=== PATIENT | female | born 1990 | race Caucasian/White ===

== ENCOUNTER → 2018-12-15 | Outpatient (CLI) | payer BC ==
[~2018-12-15] MED LIST: DESO1TAB41 PO; ENOX80DI8 SQ; ISOT40CA4 PO; ONDA8TAB91 PO; OXYC-865 PO; WARF-1 PO
[2018-12-15 16:17] LABS: PLATELET COUNT, AUTOMATED 275 K/uL (150-450)
--- NOTE | 2018-12-16 09:39 | EKG ---
FACILITY: [facility] - [place] PATIENT NAME: MAHOGANY ERAZO : [id number] MR: [id number] V: [id number] EXAM DATE: ORDERING PHYSICIAN: KEIKO HAYWOOD TECHNOLOGIST: DICK Yadav Test Reason : HEART PALPITATIONS Blood Pressure : / mmHG Vent. Rate : 071 BPM Atrial Rate : 071 BPM P-R Int : 122 ms QRS Dur : 090 ms QT Int : 410 ms P-R-T Axes : 041 019 020 degrees QTc Int : 445 ms Normal sinus rhythm Normal ECG No previous ECGs available Confirmed by CALDERON PALOMO ([id number]) on 12/17/2018 6:41:39 AM Referred By: KEIKO HAYWOOD Confirmed By:CALDERON PALOMO
== END ==
LOC: LAB 15:50
PROVIDERS: ATTEND Nurse Practitioner Family
DX: R00.2 Palpitations (principal); R06.02 Shortness of breath
CPT/HCPCS: 36415; 82040; 82247; 82310; 82374; 82435; 82565; 82728; 82947; 83540; 83550; 84075; 84132; 84155; 84295; 84443; 84450; 84460; 84520; 85025; 85379

== ENCOUNTER → 2018-12-23 | Outpatient (CLI) | payer BC ==
--- NOTE | 2018-12-25 12:40 | RT HOLTER TEST ---
FACILITY: [facility] - [place] PATIENT NAME: MAHOGANY ERAZO : [id number] MR: [id number] V: [id number] EXAM DATE: ORDERING PHYSICIAN: KEIKO HAYWOOD TECHNOLOGIST: KEREN Hook-up date: 2018-12-23 08:29:00 Duration: 24:00:00 Test Indications: PALPITATIONS Medications: N/A [id number] QRS complexes 1 Ventricular ectopics which represent <1 % of total QRS comp. 2 Supraventricular ectopics which represent <1 % of total QRS comp. * Paced QRS complexes which represent % of total QRS comp. VENTRICULAR ECTOPY 1 Isolated 0 Bigeminal Cycles 0 Couplets 0 Runs 0 Beats in Runs * Beats LONGEST at * BPM at :: -- * Beats FASTEST at * BPM at :: -- SUPRAVENTRICULAR ECTOPY 2 Isolated 0 Couplets 0 Runs 0 Beats in Runs * Beats LONGEST at * BPM at :: -- * Beats FASTEST at * BPM at :: -- HEART RATES 54 MIN at 00:28:08 2018-12-24 82 AVG 166 MAX at 17:53:57 2018-12-23 LONGEST RR 1.200 secs at 00:24:58 2018-12-24 S-T LEVELS Channel 1 -12.800 mm MIN at 08:29:00 2018-12-23 -12.800 mm MAX at 08:29:00 2018-12-23 Channel 2 -12.800 mm MIN at 08:29:00 2018-12-23 -12.800 mm MAX at 08:29:00 2018-12-23 Channel 3 -12.800 mm MIN at 08:29:00 2018-12-23 -12.800 mm MAX at 08:29:00 2018-12-23 It appears there may be a competing ectopic atrial focus. It is most noticeable on strip noted as "Ma x R-R". It appears the P wave morphology is different periodically throughout the recording. Very rare ventricular ectopy. No couplets, triplets, runs. No pauses were recorded. Episodic ST-T changes were noted during recording. Confirmed by CIRILO JOHNSON ([id number]) on 12/25/2018 12:39:48 PM Referred By: Overread By: CIRILO JOHNSON
== END ==
LOC: RESP 02:59
PROVIDERS: ATTEND Nurse Practitioner Primary Care
DX: R00.2 Palpitations (principal)
CPT/HCPCS: 93225; 93226

== ENCOUNTER 2019-01-28 20:08 | Emergency (ER) | payer BC ==
--- NOTE | 2019-01-28 20:13 | ER Report ---
History and Physical Time Seen By MD: 20:13 HPI/ROS CHIEF COMPLAINT: Chest pain HISTORY OF PRESENT ILLNESS: Patient is a 28-year-old female with past medical history significant for pulmonary embolism 2016, currently not on any anticoagulation. 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 Patient was recently seen by her primary care provider for ep isodes of palpitations. She was found to have some ectopy with a few ventricular ectopic beats and some ST segment changes throughout the evaluation. 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 She currently rates the pain as 5 out of 10 in intensity and describes it as a pressure. She denies any history of or breast-feeding. She denies any abdominal pain. She denies any infectious symptoms such as fevers or chills or cough. REVIEW OF SYSTEMS: Constitutional: No fever, no chills. Eyes: No discharge. ENT: No sore throat. Cardiovascular: Chest pain Respiratory: No cough, no shortness of breath. Gastrointestinal: No abdominal pain, no vomiting. Positive for nausea Genitourinary: No hematuria. Musculoskeletal: No back pain. Skin: No rashes. Neurological: No headache. Allergies: Coded Allergies: No Known Drug Allergies (Unverified , 01/28/19) Home Meds Active Scripts Ondansetron Hcl (ZOFRAN) 8 Mg Tablet, 1 TAB PO Q12H PRN for NAUSEA, #8 TAB 0 Refills Prov:KEIKO HAYWOOD DNP, GROUP MANAGING DIRECTOR-BC 05/17/18 Past Medical/Surgical History Past medical history for pulmonary embolism in December 2016, history of append ectomy Hx Smoking: No Smoking Status: Never Smoker Hx Substance Use Disorder: No Constitutional Vital Sign - Last 24 Hours 01/28/19 01/28/19 01/28/19 01/28/19 20:08 20:13 20:16 20:17 Temp 97.4 Pulse ??? 62 Resp 14 B/P (MAP) 134/82 (99) 134/86 (102) 134/86 Pulse Ox 100 O2 Delivery Room Air 01/28/19 01/28/19 01/28/19 01/28/19 20:30 20:38 21:01 21:08 Pulse 68 73 Resp 13 17 B/P (MAP) 128/89 (102) 112/73 (86) Pulse Ox 94 96 01/28/19 01/28/19 01/28/19 01/28/19 21:30 21:43 22:00 22:05 Pulse 72 70 Resp 22 21 B/P (MAP) 123/77 (92) 120/85 (97) Pulse Ox 92 94 01/28/19 01/28/19 01/28/19 01/28/19 22:30 22:35 23:00 23:05 Pulse 67 66 Resp 27 7 B/P (MAP) 100/61 (74) 112/74 (87) Pulse Ox 95 94 01/28/19 01/28/19 23:30 23:35 Pulse 67 Resp 12 B/P (MAP) 121/71 (88) Pulse Ox 95 Physical Exam General/Constitutional: Patient is awake, alert, nontoxic and in no acute respiratory distress. Head: Normocephalic and atraumatic. Eyes: Conjunctival clear, Sclera are clear and anicteric. Ears:External canals are clear. Tympanic membranes are clear with normal landmarks and light reflex. Nares: No rhinorrhea or bleeding. Turbinates are pink and moist. Oropharyngeal: Mucous membranes are moist. There is no pharyngeal erythema or exudate. There are no palatal petechiae. Uvula is midline and symmetrical. Neck: Supple, no adenopathy. Cardiovascular: Heart is regular rate and rhythm without audible murmurs, rubs or gallops. Pulmonary: Lungs are clear to auscultation bilaterally. There are no wheezes, rales, or rhonchi. Chest rise is symmetrical Abdomen: Soft, nontender, no guarding or peritoneal signs. Extremities: No gross deformities, No peripheral cyanosis. Able to move all 4 extremities. Neuro: Alert and oriented X3, Skin: No rashes, skin is warm dry and well perfused. Medical Decision Making Data Points Result Diagram: 01/28/19205701/28/192057 Laboratory Hematology Test 01/28/19 20:58 01/28/19 23:39 Red Blood Count 4.99 M/uL (4.17-5.56) Mean Corpuscular Volume 88.0 fL (80.0-96.0) Mean Corpuscular Hemoglobin 30.4 pg (26.0-33.0) Mean Corpuscular Hemoglobin Concent 34.5 g/dL (32.0-36.0) Red Cell Distribution Width 13.0 % (11.5-14.5) Mean Platelet Volume 8.4 fL (7.2-11.1) Neutrophils (%) (Auto) 48.9 % (39.4-72.5) Lymphocytes (%) (Auto) 42.2 % (17.6-49.6) Monocytes (%) (Auto) 5.8 % (4.1-12.4) Eosinophils (%) (Auto) 2.3 % (0.4-6.7) Basophils (%) (Auto) 0.8 % (0.3-1.4) Nucleated RBC Relative Count (auto) 0.0 /100WBC Neutrophils # (Auto) 3.5 K/uL (2.0-7.4) Lymphocytes # (Auto) 3.0 K/uL (1.3-3.6) Monocytes # (Auto) 0.4 K/uL (0.3-1.0) Eosinophils # (Auto) 0.2 K/uL (0.0-0.5) Basophils # (Auto) 0.1 K/uL (0.0-0.1) Nucleated RBC Absolute Count (auto) 0.00 K/uL Prothrombin Time 13.3 seconds (12.0-14.4) Prothromb Time International Ratio 1.01 Activated Partial Thromboplast Time 27 seconds (23-35) D-Dimer Quantitative (PE/DVT) < 0.27 ug/ml (0-0.50) Sodium Level 142 mmol/L (137-145) Potassium Level 3.8 mmol/L (3.5-5.0) Chloride Level 107 mmol/L (98-107) Carbon Dioxide Level 26 mmol/L (22-31) Blood Urea Nitrogen 15 mg/dl (7-18) Creatinine 0.90 mg/dl (0.52-1.04) Glomerular Filtration Rate Calc > 60.0 Random Glucose 62 mg/dl (75-110) Calcium Level 9.1 mg/dl (8.4-10.2) Total Bilirubin 0.1 mg/dl (0.2-1.3) Aspartate Amino Transf (AST/SGOT) 20 U/L (0-35) Alanine Aminotransferase (ALT/SGPT) 31 U/L (0-56) Alkaline Phosphatase 44 U/L (0-126) B-Type Natriuretic Peptide 8 pg/ml (0-100) Total Protein 7.1 g/dl (6.3-8.2) Albumin 4.2 g/dl (3.5-5.0) Human Chorionic Gonadotropin, Qual Negative (NEGATIVE) Troponin I < 0.012 ng/ml Chemistry Test 01/28/19 20:58 01/28/19 23:39 White Blood Count 7.1 k/uL (4.5-11.0) Red Blood Count 4.99 M/uL (4.17-5.56) Hemoglobin 15.2 g/dL (12.0-16.0) Hematocrit 44.0 % (34.0-47.0) Mean Corpuscular Volume 88.0 fL (80.0-96.0) Mean Corpuscular Hemoglobin 30.4 pg (26.0-33.0) Mean Corpuscular Hemoglobin Concent 34.5 g/dL (32.0-36.0) Red Cell Distribution Width 13.0 % (11.5-14.5) Platelet Count 254 K/uL (150-450) Mean Platelet Volume 8.4 fL (7.2-11.1) Neutrophils (%) (Auto) 48.9 % (39.4-72.5) Lymphocytes (%) (Auto) 42.2 % (17.6-49.6) Monocytes (%) (Auto) 5.8 % (4.1-12.4) Eosinophils (%) (Auto) 2.3 % (0.4-6.7) Basophils (%) (Auto) 0.8 % (0.3-1.4) Nucleated RBC Relative Count (auto) 0.0 /100WBC Neutrophils # (Auto) 3.5 K/uL (2.0-7.4) Lymphocytes # (Auto) 3.0 K/uL (1.3-3.6) Monocytes # (Auto) 0.4 K/uL (0.3-1.0) Eosinophils # (Auto) 0.2 K/uL (0.0-0.5) Basophils # (Auto) 0.1 K/uL (0.0-0.1) Nucleated RBC Absolute Count (auto) 0.00 K/uL Prothrombin Time 13.3 seconds (12.0-14.4) Prothromb Time International Ratio 1.01 Activated Partial Thromboplast Time 27 seconds (23-35) D-Dimer Quantitative (PE/DVT) < 0.27 ug/ml (0-0.50) Glomerular Filtration Rate Calc > 60.0 Calcium Level 9.1 mg/dl (8.4-10.2) Total Bilirubin 0.1 mg/dl (0.2-1.3) Aspartate Amino Transf (AST/SGOT) 20 U/L (0-35) Alanine Aminotransferase (ALT/SGPT) 31 U/L (0-56) Alkaline Phosphatase 44 U/L (0-126) B-Type Natriuretic Peptide 8 pg/ml (0-100) Total Protein 7.1 g/dl (6.3-8.2) Albumin 4.2 g/dl (3.5-5.0) Human Chorionic Gonadotropin, Qual Negative (NEGATIVE) Troponin I < 0.012 ng/ml Coagulation Test 01/28/19 20:58 Prothrombin Time 13.3 seconds Prothromb Time International Ratio 1.01 Activated Partial Thromboplast Time 27 seconds D-Dimer Quantitative (PE/DVT) < 0.27 ug/ml EKG/Imaging EKG Interpretation EKG shows sinus rhythm with a NV interval of [address] segment or T-wave abnormalities were noted. This was compared to an EKG from 12/15/2018 the only difference was NV interval noted to be 122 ms at that time otherwise the EKG is unchanged. Monitor Interpretation: Normal Sinus Rhythm Imaging FACILITY: [facility] PATIENT NAME: Lorri Self : 1990 MR: [id number] V: [id number] EXAM DATE: ORDERING PHYSICIAN: LU GRESHAM TECHNOLOGIST: Location: [facility] [place] Patient: Lorri Self : 1990 Visit/Account:[id number] Date of Sevice: 01/28/2019 2 VIEWS CHEST INDICATION: Chest Pain COMPARISON: None available FINDINGS: Cardiomediastinal silhouette: Heart size within normal limits. Lungs: There is no focal infiltrate or lobar consolidation. There is no pneumothorax or pleural effusion. Bones and soft tissues: Unremarkable IMPRESSION: 1. Clear lungs Report Dictated By: Chandan Odom MD at 01/28/2019 9:53 PM Report E-Signed By: Chandan Odom MD at 01/28/2019 9:53 PM WSN:[id number] ED Course/Re-evaluation Clinical Indication for ER IV: IV Access ED Course 01/29/2019 12:08:55 am repeat troponin unremarkable we'll discharge patient home Decision to Disposition Date: January 29, 2019 Decision to Disposition Time: 00:09 Depart Departure Latest Vital Signs Vital Signs Date Time Temp Pulse Resp B/P (MAP) Pulse Ox O2 Delivery O2 Flow Rate FiO2 01/28/19 23:35 67 12 95 01/28/19 23:30 121/71 (88) 01/28/19 20:17 97.4 Room Air Impression: Primary Impression: Chest pain Condition: Improved Disposition: HOME OR SELF-CARE Referrals: NEELAM VELA APRN GROUP MANAGING DIRECTOR-C (PCP) Call to make an appointment with your primary care provider for follow-up of chest pain. Patient Instructions: Noncardiac Chest Pain (DC) Problem Qualifiers Primary Impression: Chest pain Chest pain type: unspecified Qualified Codes: R07.9 - Chest pain, unspecified LU GRESHAM MD January 28, 2019 20:13
[2019-01-28] MEDS ORDERED: NITROGLYCERIN 0.4 MG SUBL SL ONE (20:30)
[2019-01-28] MEDS ORDERED: ASPIRIN 81 MG CHEW PO ONE (20:30)
[2019-01-28] MEDS ORDERED: ONDANSETRON 4 MG/2 ML VIAL IVP ONE (20:30)
[2019-01-28] MEDS ORDERED: KETOROLAC 15 MG/ML VIAL IVP ONE (21:00)
--- NOTE | 2019-01-28 21:00 | EKG ---
FACILITY: [facility] PATIENT NAME: MAHOGANY ERAZO : [id number] MR: [id number] V: [id number] EXAM DATE: ORDERING PHYSICIAN: LU GRESHAM TECHNOLOGIST: Test Reason : chest pain Blood Pressure : / mmHG Vent. Rate : 069 BPM Atrial Rate : 069 BPM P-R Int : 110 ms QRS Dur : 084 ms QT Int : 404 ms P-R-T Axes : 021 003 006 degrees QTc Int : 432 ms Sinus rhythm with short TN Otherwise normal ECG When compared with ECG of 15-DEC-2018 14:50, No significant change was found Confirmed by GLORIA RESENDEZ ([id number]) on 01/29/2019 12:29:58 AM Referred By: Confirmed By:GLORIA RESENDEZ
[2019-01-28 21:06] LABS: PLATELET COUNT, AUTOMATED 254 K/uL (150-450)
[2019-01-28 21:24] LABS: INR 1.01
--- NOTE | 2019-01-28 21:57 | RADIOLOGY IMAGING REPORT ---
[place] [facility] [place] NAME: Lorri Self : 1990 MR: [id number] V: [id number] EXAM DATE: ORDERING PHYSICIAN: LU GRESHAM [place]CHNOLOG[place]: [place] [facility] [place] Lorri Self : 1990 Visit/Account:[id number] Date of Sevice: 01/28/2019 2 VIEWS CHEST INDICATION: Chest Pain COMPARISON: None available FINDINGS: Cardiomediastinal silhouette: Heart size within normal limits. Lungs: There is no focal infiltrate or lobar consolidation. There is no pneumothorax or pleural effusion. Bones and soft tissues: Unremarkable IMPRESSION: 1. Clear lungs Report Dictated By: Chandan Odom MD at 01/28/2019 9:53 PM Report E-Signed By: Chandan Odom MD at 01/28/2019 9:53 PM WSN:[id number]
[2019-01-28 23:30] VITALS: BP 121/71
== END 2019-01-29 00:25 | disposition home or self-care (01) ==
LOC: ER 20:31
DX: R07.9 Chest pain, unspecified (principal)
CPT/HCPCS: 36415; 71046; 83880; 84484; 84703; 85025; 85379; 85610; 85730; 93005; 96374; 96375; 99284; J1885; J2405; 82040; 82247; 82310; 82374; 82435; 82565; 82947; 84075; 84132; 84155; 84295; 84450; 84460; 84520

== ENCOUNTER → 2019-03-01 | Outpatient (CLI) | payer BC ==
--- NOTE | 2019-03-01 15:34 | RADIOLOGY IMAGING REPORT ---
[place] [facility] [place] NAME: Lorri Self : 1990 MR: [id number] V: [id number] EXAM DATE: ORDERING PHYSICIAN: WHITNEY HOLMAN TECHNOLOGIST: Location: [facility] Patient: Lorri Self : 1990 Visit/Account:[id number] Date of Sevice: 03/01/2019 Exam type: 7 views of the lumbar spine History: Pain Comparison: None. Findings: There are 5 nonrib-bearing lumbar vertebral bodies. Oblique views fail to demonstrate a pars defect. AP alignment is normal. Disc space heights are preserved. No significant motion on flexion extens ion views. There appears to be some sclerosis of SI joints suggesting sacroiliitis potential source for pain. IMPRESSION: 1. Unremarkable plain film evaluation of the lumbar spine. 2. Sclerosis of the SI joints suggests sacroiliitis potentially a source for pain. Report Dictated By: Chandan Jones MD at 03/01/2019 3:08 PM Report E-Signed By: Chandan Jones MD at 03/01/2019 3:25 PM WSN:[id number]
== END ==
LOC: RAD 14:36
PROVIDERS: ATTEND Chiropractor
DX: M51.26 Other intervertebral disc displacement, lumbar region (principal)
CPT/HCPCS: 72114